=== PATIENT | male | born 1995 ===

== ENCOUNTER 2016-07-31 11:01 | Emergency (ER) | payer OTHER ==
--- NOTE | 2016-07-31 11:36 | UC ---
Asthma HPI - HPI Summary HPI Summary: Has had chest congestion, cough, and wheezing for a few days, thinks it is from cleaning his room and stirring up dust and other allergens. Has hx of wheezing in past without asthma. Denies fever, ST, or runny nose. - History of Current Complaint Chief Complaint: UCRespiratory Stated Complaint: CONGESTION Time Seen by Provider: 07/31/16 11:09 Hx Obtained From: Patient Onset/Duration: Gradual Onset, Lasting Days Timing: Constant Initial Severity: Mild Current Severity: Mild Location/Character: Cough (Nonproductive) Aggravating: Exertion, Allergens Alleviating: Rest Associated Signs and Symptoms: Positive: Negative - Allergy/Home Medications Allergies/Adverse Reactions: Allergies Allergy/AdvReac Type Severity Reaction Status Date / Time Pollen Extract Allergy Mild Congestion Verified 07/31/16 11:08 Home Medications: Home Medications Acetaminophen [Acetaminophen Extra Stren] 1 odt PO TID PRN 07/31/16 [History Confirmed 07/31/16] PMH/Surg Hx/FS Hx/Imm Hx Endocrine History Of: Denies: Diabetes, Thyroid Disease Cardiovascular History Of: Denies: Cardiac Disorders, Hypertension Respiratory History Of: Denies: COPD, Asthma GI/ History Of: Denies: Ulcer - Surgical History Surgical History: None - Family History Known Family History: Positive: Hypertension - Social History Occupation: Student Lives: Alone Alcohol Use: None Substance Use Type: None Smoking Status (MU): Never Smoked Tobacco Review of Systems Constitutional: Negative Skin: Negative Eyes: Negative ENT: Negative Respiratory: Shortness Of Breath, Cough Cardiovascular: Negative Gastrointestinal: Negative Genitourinary: Negative Motor: Negative Neurovascular: Negative Musculoskeletal: Negative Neurological: Negative Psychological: Negative All Other Systems Reviewed And Are Negative: Yes Physical Exam Triage Information Reviewed: Yes Appearance: Well-Appearing, No Pain Distress, Well-Nourished Vital Signs: Initial Vital Signs Temp 98.2 F 07/31/16 11:13 Pulse 83 07/31/16 11:13 Resp 16 07/31/16 11:13 BP 131/85 07/31/16 11:13 Pulse Ox 98 07/31/16 11:13 Vital Signs Reviewed: Yes Eye Exam: Normal Eyes: Positive: Conjunctiva Clear ENT Exam: Normal ENT: Positive: Normal ENT inspection, Hearing grossly normal, Pharynx normal, TMs normal Dental Exam: Normal Neck exam: Normal Neck: Positive: Supple, Nontender, No Lymphadenopathy Respiratory: Positive: No respiratory distress, Wheezing Cardiovascular Exam: Normal Cardiovascular: Positive: RRR, No Murmur Musculoskeletal Exam: Normal Neurological Exam: Normal Neurological: Positive: Alert Psychological Exam: Normal Skin Exam: Normal Asthma Course/Dx - Differential Dx/Diagnosis Provider Diagnoses: bronchospasm. elevated blood pressure due to discomfort Discharge - Discharge Plan Condition: Stable Disposition: HOME Prescriptions: Albuterol HFA INHALER* [Ventolin HFA Inhaler*] 1 - 2 puff INH Q4H PRN #1 mdi PRN Reason: wheeze, cough Cetirizine* [ZyrTEC 10 MG TAB*] 10 mg PO DAILY #30 tab Patient Education Materials: Wheezing (ED) Additional Instructions: I agree that your breathing problems are likely caused by allergies. I have prescribed cetirizine (generic zyrtec) as a daily antihistamine; if you find it is cheaper to buy a big bottle [id number] you should do that. You should be able to reduce your albuterol inhaler use down to only 1-2 times per week by the end of this month. If you are not, please see your primary care provider for additional therapy.
== END 2016-07-31 11:35 | disposition home or self-care (01) ==
LOC: UCEAST 11:01
DX: J98.01 Acute bronchospasm (principal); R03.0 Elevated blood-pressure reading, without diagnosis of hypertension
CPT/HCPCS: 99202; G0463